=== PATIENT | female | born 1985 | race Caucasian/White ===

== ENCOUNTER 2017-02-08 04:36 | Inpatient (IN) | payer OTHER ==
[~2017-02-08] VITALS: Ht 182.9 cm; Wt 97.3 kg
[2017-02-08 04:30] VITALS: BP 134/84
[2017-02-08] MEDS ORDERED: OXYTOCIN 30U/ 0.9% NaCL 500ML 500 ML IV ONE (04:41)
[2017-02-08] MEDS ORDERED: AMPICILLIN 2 GM in SODIUM CHLORIDE 0.9% 100 ML IVPB STA (04:41)
[2017-02-08] MEDS ORDERED: LACTATED RINGERS 1,000 ML IV SCH (04:41)
[2017-02-08] MEDS: FENTANYL PF 100 MCG/2ML IVPush PRN ×2 (04:55→06:29)
[2017-02-08] MEDS ORDERED: TERBUTALINE 1 MG/ML, 1ML IVPush PRN (05:00)
[2017-02-08] MEDS ORDERED: FENTANYL PF 100 MCG/2ML IV PRN (05:00)
[2017-02-08] MEDS: AMPICILLIN 1 GM in SODIUM CHLORIDE 0.9% 50 ML IVPB SCH ×2 (05:00→09:00)
[2017-02-08] MEDS: PLEASE ENTER ALLERGIES MC SCH ×12 (05:00→10:00)
[2017-02-08] MEDS ORDERED: CALCIUM CARBONATE 500 MG TAB.CHEW PO PRN (05:00)
[2017-02-08] MEDS ORDERED: ONDANSETRON 2MG/ML, 2ML IVPush PRN (05:00)
[2017-02-08] MEDS ORDERED: OXYTOCIN 30U/ 0.9% NaCL 500ML 500 ML ONE ×2 (05:57→06:32)
[2017-02-08] MEDS ORDERED: LIDOCAINE 1%, 20ML ONE (06:09)
[2017-02-08] MEDS ORDERED: FENTANYL PF 100 MCG/2ML ONE (06:24)
[2017-02-08] MEDS ORDERED: METHYLERGONOVINE 0.2 MG/ML IM PRN (07:00)
[2017-02-08] MEDS ORDERED: OXYTOCIN 10 UNITS/ML, 1ML IM PRN (07:00)
[2017-02-08] MEDS: OXYTOCIN 30U/ 0.9% NaCL 500ML 500 ML IV SCH ×2 (07:00→17:00)
[2017-02-08] MEDS ORDERED: MISOPROSTOL 200 MCG TABLET PR PRN (07:00)
[2017-02-08] MEDS ORDERED: ONDANSETRON 2MG/ML, 2ML IV PRN (07:00)
[2017-02-08] MEDS ORDERED: IBUPROFEN 600 MG TABLET ONE (07:52)
[2017-02-08] MEDS: IBUPROFEN 600 MG TABLET PO PRN ×2 (07:55→17:37)
[2017-02-08] MEDS ORDERED: HYDROcodone/APAP 5/325 TABLET ONE (08:29)
[2017-02-08] MEDS: HYDROcodone/APAP 5/325 TABLET PO PRN ×5 (08:32→23:13)
[2017-02-08 09:05] VITALS: BP 100/65
[2017-02-08] MEDS: DOCUSATE 100 MG CAPSULE PO SCH ×2 (11:00→23:13)
[2017-02-08] MEDS: PRENATAL VIT/IRON/FA 1 EACH TABLET PO SCH (11:00)
[2017-02-08 13:00] VITALS: BP 106/69
[2017-02-08 17:00] VITALS: BP 105/58
[2017-02-08] MEDS ORDERED: DIPH,PERTUSS(ACELL),TET VAC/PF NC IM-VACC ONE ×2 (17:45→18:00)
[2017-02-08 22:20] VITALS: BP 120/75
[2017-02-09] MEDS: OXYTOCIN 30U/ 0.9% NaCL 500ML 500 ML IV SCH ×2 (03:00→06:34)
[2017-02-09 05:00] VITALS: BP 92/50
[2017-02-09] MEDS: IBUPROFEN 600 MG TABLET PO PRN ×2 (05:51→16:25)
[2017-02-09] MEDS: HYDROcodone/APAP 5/325 TABLET PO PRN ×4 (05:51→21:12)
[2017-02-09 07:10] VITALS: BP 117/80
[2017-02-09] MEDS: PRENATAL VIT/IRON/FA 1 EACH TABLET PO SCH (07:59)
[2017-02-09] MEDS: DOCUSATE 100 MG CAPSULE PO SCH (07:59)
[2017-02-09 20:58] VITALS: BP 106/66
[2017-02-10] MEDS: IBUPROFEN 600 MG TABLET PO PRN ×2 (06:00→14:15)
[2017-02-10] MEDS: HYDROcodone/APAP 5/325 TABLET PO PRN ×3 (06:00→14:15)
[2017-02-10 07:05] VITALS: BP 104/68
[2017-02-10] MEDS: DOCUSATE 100 MG CAPSULE PO SCH (10:07)
[2017-02-10] MEDS: PRENATAL VIT/IRON/FA 1 EACH TABLET PO SCH (10:07)
[2017-02-10] MEDS ORDERED: HYDR-3240 PO (13:04)
[2017-02-10] MEDS ORDERED: DOCU-30 PO (13:05)
[2017-02-10] MEDS ORDERED: IBUP200T48 PO (13:05)
== END 2017-02-10 15:11 | disposition home or self-care (01) | DRG 775 ==
LOC: LDOP 04:36 → LDIP 04:45 → 2NW 08:47
PROVIDERS: ADMIT Student in an Organized Health Care Education/Training Program; ATTEND Student in an Organized Health Care Education/Training Program
PROC: 10E0XZZ Delivery of Products of Conception, External Approach (ICD-10-PCS; principal; 2017-02-08)
PROC: 0KQM0ZZ Repair Perineum Muscle, Open Approach (ICD-10-PCS; 2017-02-08)
DX: O99.824 Streptococcus B carrier state complicating childbirth (principal); O62.3 Precipitate labor; O70.1 Second degree perineal laceration during delivery; Z37.0 Single live birth; Z3A.38 38 weeks gestation of pregnancy; Z23 Encounter for immunization
CPT/HCPCS: 36415; 85025; 86850; 86900; 90715; J0290; J3010; J2590; J7120